=== PATIENT | female | born 1985 | race African-American/Black ===

== ENCOUNTER 2018-07-04 16:45 | Emergency (ER) | payer SELFPAY ==
--- NOTE | 2018-07-04 18:21 | ER ---
Nurse's Notes [facility] Name: Chilo Morton Age: 32 yrs Sex: Female : 1985 Arrival Date: 07/04/2018 Time: 16:51 Bed 14 Private MD: Diagnosis: Influenza due to other identified influenza virus-B Presentation: 07/04 16:51 Presenting complaint: Patient states: fever Tmax 101, sore throat, vomiting, headache x sv 2 days. Transition of care: patient was not received from another setting of care. Onset of symptoms was July 02, 2018. Care prior to arrival: None. 16:51 Method Of Arrival: Ambulatory sv 16:51 Acuity: ADRIANA 4 sv 18:33 Risk Assessment: Do you want to hurt yourself or someone else? Patient reports no aj1 desire to harm self or others. Initial Sepsis Screen: Does the patient meet any 2 criteria? No. Patient's initial sepsis screen is negative. Does the patient have a suspected source of infection? No. Patient's initial sepsis screen is negative. Triage Assessment: 16:53 General: Appears in no apparent distress. uncomfortable, Behavior is calm, cooperative, sv appropriate for age. Neuro: Level of Consciousness is awake, alert, obeys commands, Gait is steady. Respiratory: Respiratory effort is even, unlabored, Respiratory pattern is regular, symmetrical. Historical: - Allergies: 16:52 PENICILLINS; sv - PMHx: 16:52 None; sv - PSHx: 16:52 None; sv - Immunization history:: Adult Immunizations up to date. - Social history:: Smoking status: unknown. - Ebola Screening: : No symptoms or risks identified at this time. Screenin:30 Abuse screen: Denies threats or abuse. Denies injuries from another. Nutritional aj1 screening: No deficits noted. Tuberculosis screening: No symptoms or risk factors identified. 18:33 Fall Risk None identified. aj1 Assessment: 17:30 General: Appears in no apparent distress. uncomfortable, Behavior is calm, cooperative, aj1 appropriate for age. Pain: Complains of pain in left aspect of posterior pharynx and right aspect of posterior pharynx. Neuro: Level of Consciousness is awake, alert, obeys commands. Cardiovascular: Patient's skin is warm and dry. Respiratory: Airway is patent Respiratory effort is even, unlabored, Respiratory pattern is regular, symmetrical. Respiratory: Reports cough that is productive, Breath sounds are clear bilaterally. GI: Abdomen is non-distended, Reports nausea, vomiting, Patient currently denies diarrhea. : No signs and/or symptoms were reported regarding the genitourinary system. EENT: No signs and/or symptoms were reported regarding the EENT system. Derm: No signs and/or symptoms reported regarding the dermatologic system. Skin is pink, warm \T\ dry. normal. Musculoskeletal: No signs and/or symptoms reported regarding the musculoskeletal system. Circulation, motion, and sensation intact. 18:11 Reassessment: Patient appears in no apparent distress at this time. No changes from aj1 previously documented assessment. Patient and/or family updated on plan of care and expected duration. Pain level reassessed. Patient is alert, oriented x 3, equal unlabored respirations, skin warm/dry/pink. Vital Signs: 16:52 BP 142 / 90; Pulse 82; Resp 18; Temp 98.2; Pulse Ox 99% ; Height 5 ft. 3 in. (160.02 sv cm); 18:11 BP 130 / 76; Pulse 83; Resp 18; Pulse Ox 100% on R/A; aj1 ED Course: 16:51 Patient arrived in ED. sv 16:52 Triage completed. sv 16:53 Arm band placed on. sv 16:56 [facility] snw 16:56 Deangelo Cox MD is Attending Physician. snw 17:30 Patient has correct armband on for positive identification. Bed in low position. Call aj1 light in reach. Side rails up X 1. 17:30 No provider procedures requiring assistance completed. aj1 18:05 Karo Foster, TORIN is Primary Nurse. aj1 18:33 Patient did not have IV access during this emergency room visit. aj1 Administered Medications: No medications were administered Outcome: 18:20 Discharge ordered by . snw 18:33 Discharged to home ambulatory. aj1 18:33 Condition: good 18:33 Discharge instructions given to patient, Instructed on discharge instructions, follow up and referral plans. medication usage, Demonstrated understanding of instructions, follow-up care, medications, Prescriptions given X 2. 18:36 Patient left the ED. aj1 Signatures: Karo Foster RN RN [email or web address] Nancy Dale RN RN sv Leslie Padilla, LOCOMOTIVE FIRER-C LOCOMOTIVE FIRER-Csnw Corrections: (The following items were deleted from the chart) 16:54 16:52 Pulse 82bpm; Resp 18bpm; Pulse Ox 99%; Temp 98.2F; Height 5 ft. 3 in.; sv sv
--- NOTE | 2018-07-04 18:21 | EDPHYS ---
Physician Documentation [facility] Name: Chilo Morton Age: 32 yrs Sex: Female : 1985 Arrival Date: 07/04/2018 Time: 16:51 Bed 14 Private MD: ED Physician Deangelo Cox HPI: 07/04 17:09 This 32 yrs old Black Female presents to ER via Ambulatory with complaints of Sore snw Throat, Fever, Headache. 17:09 The patient presents with sore throat. The patient describes throat pain as scratchy. snw Onset: The symptoms/episode began/occurred suddenly, 2 day(s) ago, and became persistent. Severity of symptoms: At their worst the symptoms were moderate. Associated signs and symptoms: Pertinent positives: fever, flu-like symptoms, headache, Sore throat. The patient has not experienced similar symptoms in the past, but family has similar symptoms, "my whole family has the flu". The patient has not recently seen a physician. Historical: - Allergies: 16:52 PENICILLINS; sv - PMHx: 16:52 None; sv - PSHx: 16:52 None; sv - Immunization history:: Adult Immunizations up to date. - Social history:: Smoking status: unknown. - Ebola Screening: : No symptoms or risks identified at this time. ROS: 17:08 Eyes: Negative for injury, pain, redness, and discharge. snw 17:08 Neck: Negative for injury, pain, and swelling, Cardiovascular: Negative for chest pain, palpitations, and edema, Respiratory: Negative for shortness of breath, cough, wheezing, and pleuritic chest pain, Abdomen/GI: Negative for abdominal pain, nausea, vomiting, diarrhea, and constipation, Back: Negative for injury and pain, : Negative for injury, bleeding, discharge, and swelling, MS/Extremity: Negative for injury and deformity, Skin: Negative for injury, rash, and discoloration, Neuro: Negative for headache, weakness, numbness, tingling, and seizure. 17:08 Constitutional: Positive for body aches, chills, fever, poor PO intake. 17:08 ENT: Positive for nasal discharge, rhinorrhea. Exam: 17:08 Head/Face: Normocephalic, atraumatic. Eyes: Pupils equal round and reactive to light, snw extra-ocular motions intact. Lids and lashes normal. Conjunctiva and sclera are non-icteric and not injected. Cornea within normal limits. Periorbital areas with no swelling, redness, or edema. 17:08 Neck: Trachea midline, no thyromegaly or masses palpated, and no cervical lymphadenopathy. Supple, full range of motion without nuchal rigidity, or vertebral point tenderness. No Meningismus. Chest/axilla: Normal chest wall appearance and motion. Nontender with no deformity. No lesions are appreciated. Cardiovascular: Regular rate and rhythm with a normal S1 and S2. No gallops, murmurs, or rubs. Normal PMI, no JVD. No pulse deficits. Respiratory: Lungs have equal breath sounds bilaterally, clear to auscultation and percussion. No rales, rhonchi or wheezes noted. No increased work of breathing, no retractions or nasal flaring. Abdomen/GI: Soft, non-tender, with normal bowel sounds. No distension or tympany. No guarding or rebound. No evidence of tenderness throughout. Back: No spinal tenderness. No costovertebral tenderness. Full range of motion. Skin: Warm, dry with normal turgor. Normal color with no rashes, no lesions, and no evidence of cellulitis. MS/ Extremity: Pulses equal, no cyanosis. Neurovascular intact. Full, normal range of motion. Neuro: Awake and alert, GCS 15, oriented to person, place, time, and situation. Cranial nerves II-XII grossly intact. Motor strength 5/5 in all extremities. Sensory grossly intact. Cerebellar exam normal. Normal gait. Psych: Awake, alert, with orientation to person, place and time. Behavior, mood, and affect are within normal limits. 17:08 Constitutional: The patient appears alert, awake, well developed, uncomfortable. 17:08 ENT: TM's: are normal, Nose: nasal drainage, that is moderate, and is seen coming from both nares, that is clear, Mouth: is normal, Posterior pharynx: is normal. Vital Signs: 16:52 BP 142 / 90; Pulse 82; Resp 18; Temp 98.2; Pulse Ox 99% ; Height 5 ft. 3 in. (160.02 sv cm); 18:11 BP 130 / 76; Pulse 83; Resp 18; Pulse Ox 100% on R/A; aj1 MDM: 17:03 Patient medically screened. [facility] 18:21 Data reviewed: vital signs, nurses notes. Data interpreted: Pulse oximetry: on room air snw is 100 %. Interpretation: normal. Counseling: I had a detailed discussion with the patient and/or guardian regarding: the historical points, exam findings, and any diagnostic results supporting the discharge/admit diagnosis, lab results, the need for outpatient follow up, to return to the emergency department if symptoms worsen or persist or if there are any questions or concerns that arise at home. Special discussion: I have referred the patient to see his PCP for further evaluation of high blood pressure. Based on the history and exam findings, there is no indication for further emergent testing or inpatient evaluation. I discussed with the patient/guardian the need to see the primary care provider for further evaluation of the symptoms. 07/04 16:56 Order name: Flu; Complete Time: 18:22 snw 07/04 16:56 Order name: Strep; Complete Time: 18:24 snw 07/04 18:22 Order name: Throat Culture EDMS Administered Medications: No medications were administered Disposition: 07/04/18 18:20 Discharged to Home. Impression: Influenza due to other identified influenza virus - B. - Condition is Stable. - Discharge Instructions: Influenza, Adult. - Prescriptions for Tamiflu 75 mg Oral Capsule - take 1 capsule by ORAL route every 12 hours for 5 days; 10 capsule. Tylenol- Codeine #3 300-30 mg Oral Tablet - take 1 tablet by ORAL route every 6 hours As needed; 6 tablet. - Work release form, Medication Reconciliation Form, Thank You Letter, Antibiotic Education, Prescription Opioid Use form. - Follow up: Private Physician; When: 2 - 3 days; Reason: Recheck today's complaints, Continuance of care, Re-evaluation by your physician. Follow up: Emergency Department; When: As needed; Reason: Worsening of condition. Addendum: 07/07/2018 07:14 Co-signature as Attending Physician, Deangelo Cox MD I agree with the assessment and c genao plan of care. Signatures: Dispatcher [employer] EDKaro Mosquera RN RN aj1 Nancy Dale RN RN sv Anderson, Corey, MD MD cha Therrien, Shelly, TAX ACCOUNTANT-C TAX ACCOUNTANT-Csnw Corrections: (The following items were deleted from the chart) 07/04 18:36 18:20 07/04/2018 18:20 Discharged to Home. Impression: Influenza due to other aj1 identified influenza virus - B. Condition is Stable. Forms are Medication Reconciliation Form, Thank You Letter, Antibiotic Education, Prescription Opioid Use. Follow up: Private Physician; When: 2 - 3 days; Reason: Recheck today's complaints, Continuance of care, Re-evaluation by your physician. Follow up: Emergency Department; When: As needed; Reason: Worsening of condition. snw
== END 2018-07-04 18:36 | disposition home or self-care (01) ==
LOC: ER 16:45
DX: J10.1 Influenza due to other identified influenza virus with other respiratory manifestations (principal); Z88.0 Allergy status to penicillin
CPT/HCPCS: 87070; 87081; 87804; 99282

== ENCOUNTER 2019-05-28 08:03 | Emergency (ER) | payer SELFPAY ==
--- NOTE | 2019-05-28 10:11 | ER ---
Nurse's Notes [facility] Name: Chilo Morton Age: 33 yrs Sex: Female : 1985 Arrival Date: 05/28/2019 Time: 08:11 Bed 15 Private MD: Diagnosis: Acute laryngopharyngitis Presentation: 05/28 08:24 Presenting complaint: Patient states: i have had sore throat that started yesterday, i tw2 have a headache that's bad like a migraine, but i have had worse, and i vomited yesterday. no fever. Transition of care: patient was not received from another setting of care. Onset of symptoms was May 28, 2019. Risk Assessment: Do you want to hurt yourself or someone else? Patient reports no desire to harm self or others. Initial Sepsis Screen: Does the patient meet any 2 criteria? No. Patient's initial sepsis screen is negative. Does the patient have a suspected source of infection? No. Patient's initial sepsis screen is negative. Care prior to arrival: None. 08:24 Method Of Arrival: Ambulatory tw2 08:24 Acuity: ADRIANA 4 tw2 Triage Assessment: 08:26 General: Appears in no apparent distress. obese, Behavior is calm, cooperative, tw2 appropriate for age. Pain: Complains of pain in uvula, left aspect of posterior pharynx and right aspect of posterior pharynx. EENT: Reports nasal congestion nasal discharge. Neuro: Reports headache. 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 tw2 Historical: - Allergies: 08:27 PENICILLINS; tw2 08:27 Amoxicillin; tw2 08:27 [place] And Derivatives; tw2 - Home Meds: 08:27 None [Active]; tw2 - PMHx: 08:27 None; tw2 - PSHx: 08:27 None; tw2 - Immunization history:: Adult Immunizations. - Coronavirus screen:: The patient has NOT traveled to [place], [place], or [place] in the past 14 days. - Social history:: Smoking status: . - Ebola Screening: : Patient denies travel to an Ebola-affected area in the 21 days before illness onset. Screenin:41 Abuse screen: Denies threats or abuse. Nutritional screening: No deficits noted. tw2 Tuberculosis screening: No symptoms or risk factors identified. Fall Risk None identified. Assessment: 08:20 General: Appears in no apparent distress. obese, well groomed, Behavior is calm, tw2 cooperative, appropriate for age. Neuro: Level of Consciousness is awake, alert, obeys commands, Oriented to person, place, time, situation, Reports headache. Cardiovascular: Patient's skin is warm and dry. Respiratory: Airway is patent Respiratory effort is even, unlabored, Respiratory pattern is regular, symmetrical, Breath sounds are clear bilaterally. GI: Reports nausea, vomiting, vomited yesterday. : No signs and/or symptoms were reported regarding the genitourinary system. EENT: Throat is reddened Reports pain when swallowing. Derm: No signs and/or symptoms reported regarding the dermatologic system. Musculoskeletal: Range of motion: intact in all extremities. 09:31 Reassessment: Patient appears in no apparent distress at this time. No changes from tw2 previously documented assessment. Patient and/or family updated on plan of care and expected duration. Pain level reassessed. Patient is alert, oriented x 3, equal unlabored respirations, skin warm/dry/pink. 10:02 Reassessment: Patient appears in no apparent distress at this time. No changes from tw2 previously documented assessment. Patient and/or family updated on plan of care and expected duration. Pain level reassessed. Patient is alert, oriented x 3, equal unlabored respirations, skin warm/dry/pink. Vital Signs: 08:26 BP 121 / 61; Pulse 79; Resp 18; Temp 98.1(O); Pulse Ox 100% on R/A; Weight 95.25 kg tw2 (R); Height 5 ft. 3 in. (160.02 cm); Pain 8/10; 08:26 Body Mass Index 37.20 (95.25 kg, 160.02 cm) tw2 ED Course: 08:11 Patient arrived in ED. mr 08:12 Leslie Padilla [facility]NP-C [facility]. snw 08:12 Hubert Varela MD is Attending Physician. snw 08:19 Bed in low position. Call light in reach. tw2 08:24 Elaine Uriarte, TORIN is Primary Nurse. tw2 08:25 Triage completed. tw2 08:26 Arm band placed on. tw2 08:41 Flu and/or RSV swab sent to lab. Strep swab sent to lab. tw2 : Strep Sent. tw2 : Flu Sent. tw2 10: No provider procedures requiring assistance completed. Patient did not have IV access tw2 during this emergency room visit. Administered Medications: No medications were administered Outcome: Discharge ordered by . teagan 10: Discharged to home ambulatory. tw2 10: Condition: stable 10: Discharge instructions given to patient, Instructed on discharge instructions, follow up and referral plans. medication usage, Demonstrated understanding of instructions, follow-up care, medications, Prescriptions given X 2. 10:02 Patient left the ED. tw2 Signatures: Leslie Padilla, CAKE WRAPPER-C CAKE WRAPPER-Csnw Jocy Blandon mr Elaine Uriarte, RN RN tw2
--- NOTE | 2019-05-28 10:12 | EDPHYS ---
Physician Documentation [facility] Name: Chilo Morton Age: 33 yrs Sex: Female : 1985 Arrival Date: 05/28/2019 Time: 08:11 Bed 15 Private MD: ED Physician Hubert Varela HPI: 05/28 08:34 This 33 yrs old Black Female presents to ER via Ambulatory with complaints of Cough, snw Sore Throat, Runny Nose. 08:34 The patient or guardian reports cough, flu symptoms, low-grade fever, myalgias, no snw appetite. Onset: The symptoms/episode began/occurred suddenly, last night. Severity of symptoms: At their worst the symptoms were mild. Associated signs and symptoms: Pertinent positives: nausea, rhinorrhea, sore throat. The patient has not experienced similar symptoms in the past. The patient has not recently seen a physician. 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 tw2 Historical: - Allergies: 08:27 PENICILLINS; tw2 08:27 Amoxicillin; tw2 08:27 [place] And Derivatives; tw2 - Home Meds: 08:27 None [Active]; tw2 - PMHx: 08:27 None; tw2 - PSHx: 08:27 None; tw2 - Immunization history:: Adult Immunizations. - Coronavirus screen:: The patient has NOT traveled to [place], [place], or [place] in the past 14 days. - Social history:: Smoking status: . - Ebola Screening: : Patient denies travel to an Ebola-affected area in the 21 days before illness onset. ROS: 08:33 Eyes: Negative for injury, pain, redness, and discharge. snw 08:33 Neck: Negative for injury, pain, and swelling, Cardiovascular: Negative for chest pain, palpitations, and edema. 08:33 Back: Negative for injury and pain, : Negative for injury, bleeding, discharge, and swelling, MS/Extremity: Negative for injury and deformity, Skin: Negative for injury, rash, and discoloration, Neuro: Negative for headache, weakness, numbness, tingling, and seizure. 08:33 Constitutional: Positive for body aches, fatigue, malaise, poor PO intake. 08:33 ENT: Positive for sinus congestion, sore throat. 08:33 Respiratory: Positive for cough, with no reported sputum. 08:33 Abdomen/GI: Positive for nausea, vomiting. Exam: 08:32 Constitutional: This is a well developed, well nourished patient who is awake, alert, snw and in no acute distress. Head/Face: Normocephalic, atraumatic. Eyes: Pupils equal round and reactive to light, extra-ocular motions intact. Lids and lashes normal. Conjunctiva and sclera are non-icteric and not injected. Cornea within normal limits. Periorbital areas with no swelling, redness, or edema. 08:32 Neck: Trachea midline, no thyromegaly or masses palpated, and no cervical lymphadenopathy. Supple, full range of motion without nuchal rigidity, or vertebral point tenderness. No Meningismus. Chest/axilla: Normal chest wall appearance and motion. Nontender with no deformity. No lesions are appreciated. Cardiovascular: Regular rate and rhythm with a normal S1 and S2. No gallops, murmurs, or rubs. Normal PMI, no JVD. No pulse deficits. Respiratory: Lungs have equal breath sounds bilaterally, clear to auscultation and percussion. No rales, rhonchi or wheezes noted. No increased work of breathing, no retractions or nasal flaring. Abdomen/GI: Soft, non-tender, with normal bowel sounds. No distension or tympany. No guarding or rebound. No evidence of tenderness throughout. Back: No spinal tenderness. No costovertebral tenderness. Full range of motion. Skin: Warm, dry with normal turgor. Normal color with no rashes, no lesions, and no evidence of cellulitis. MS/ Extremity: Pulses equal, no cyanosis. Neurovascular intact. Full, normal range of motion. Neuro: Awake and alert, GCS 15, oriented to person, place, time, and situation. Cranial nerves II-XII grossly intact. Motor strength 5/5 in all extremities. Sensory grossly intact. Cerebellar exam normal. Normal gait. Psych: Awake, alert, with orientation to person, place and time. Behavior, mood, and affect are within normal limits. 08:32 ENT: External ear(s): are unremarkable, Ear canal(s): are normal, TM's: are normal, Nose: is normal, Mouth: is normal, Posterior pharynx: is normal, Voice: is hoarse. Vital Signs: 08:26 BP 121 / 61; Pulse 79; Resp 18; Temp 98.1(O); Pulse Ox 100% on R/A; Weight 95.25 kg tw2 (R); Height 5 ft. 3 in. (160.02 cm); Pain 8/10; 08:26 Body Mass Index 37.20 (95.25 kg, 160.02 cm) tw2 MDM: 08:35 Patient medically screened. snw 09:53 Differential Diagnosis: Bronchitis Influenza Upper Respiratory Infection Sinusitis snw Pharyngitis Otitis Media. Data reviewed: vital signs, nurses notes, lab test result(s). Data interpreted: Pulse oximetry: on room air is 100 %. Interpretation: normal. Counseling: I had a detailed discussion with the patient and/or guardian regarding: the historical points, exam findings, and any diagnostic results supporting the discharge/admit diagnosis, lab results, the need for outpatient follow up, to return to the emergency department if symptoms worsen or persist or if there are any questions or concerns that arise at home. Special discussion: Based on the history and exam findings, there is no indication for further emergent testing or inpatient evaluation. I discussed with the patient/guardian the need to see the primary care provider for further evaluation of the symptoms. 05/28 08:25 Order name: Flu snw 05/28 08:25 Order name: Strep snw 05/28 09:45 Order name: Influenza Screen (A ; Complete Time: 09:48 EDMS 02 09:45 Order name: Group A Streptococcus Rapid Sc; Complete Time: 09:48 EDMS Administered Medications: No medications were administered Disposition: 16:33 Co-signature as Attending Physician, Hubert Varela MD. rn Disposition: 05/28/19 09:52 Discharged to Home. Impression: Acute laryngopharyngitis. - Condition is Stable. - Discharge Instructions: Fever, Adult, Pharyngitis, Upper Respiratory Infection, Adult, Cough, Adult, Rehydration, Adult. - Prescriptions for Zyrtec 10 mg Oral Tablet - take 1 tablet by ORAL route once daily As needed; 20 tablet. Prednisone 20 mg Oral Tablet - take 2 tablet by ORAL route once daily for 5 days; 10 tablet. - Medication Reconciliation Form, Thank You Letter, Antibiotic Education, Prescription Opioid Use, Work release form form. - Follow up: Emergency Department; When: As needed; Reason: Worsening of condition. Follow up: Private Physician; When: 2 - 3 days; Reason: Recheck today's complaints, Continuance of care, Re-evaluation by your physician. Signatures: Dispatcher [employer] EDLeslie Choudhary, WAIST FITTER-C WAIST FITTER-Csnw Hubert Varela MD MD rn Elaine Uriarte RN RN tw2 Corrections: (The following items were deleted from the chart) 10:02 09:52 05/28/2019 09:52 Discharged to Home. Impression: Acute laryngopharyngitis. tw2 Condition is Stable. Forms are Work release form, Medication Reconciliation Form, Thank You Letter, Antibiotic Education, Prescription Opioid Use. Follow up: Emergency Department; When: As needed; Reason: Worsening of condition. Follow up: Private Physician; When: 2 - 3 days; Reason: Recheck today's complaints, Continuance of care, Re-evaluation by your physician. snw
[2019-05-28 10:56] VITALS: BP 121/61; TEMP 98.1; O2SAT 100
== END 2019-05-28 10:02 | disposition home or self-care (01) ==
LOC: ER 08:03
DX: J06.0 Acute laryngopharyngitis (principal); Z88.0 Allergy status to penicillin; Z88.1 Allergy status to other antibiotic agents
CPT/HCPCS: 87070; 87081; 87804; 99283

== ENCOUNTER 2021-12-19 09:13 | Emergency (ER) | payer SELFPAY ==
--- NOTE | 2021-12-19 11:11 | ER ---
Nurse's Notes [facility] Name: Chilo Morton Age: 36 yrs Sex: Female : 1985 Arrival Date: 12/19/2021 Time: 09:20 Bed Waiting Private MD: Diagnosis: Acute upper respiratory infection, unspecified Presentation: 12/19 09:53 Chief complaint: Patient states: i would say its a migraine but i dont know. its on tw2 going and applied pressure or a sinus headache. it started about 3 days ago maybe long. it comes and goes and nothing helps relieve the pain and pressure. +sob +cough. Coronavirus screen: congestion, cough unrelated to allergies, Client presents with at least one sign or symptom that may indicate coronavirus-19. Standard/surgical mask placed on the client. Provider contacted for isolation considerations. Ebola Screen: Patient denies travel to an Ebola-affected area in the 21 days before illness onset. Initial Sepsis Screen: Does the patient meet any 2 criteria? HR > 90 bpm. No. Patient's initial sepsis screen is negative. Does the patient have a suspected source of infection? No. Patient's initial sepsis screen is negative. Risk Assessment: Do you want to hurt yourself or someone else? Patient reports no desire to harm self or others. Onset of symptoms was December 19, 2021. 09:53 Method Of Arrival: Ambulatory tw 09:53 Acuity: ADRIANA 4 METAL CONTROL COORDINATOR: 09:52 LMP 12/15/2021 tw2 Historical: - Allergies: 09:51 Amoxicillin; tw2 09:51 [place] And Derivatives; tw2 09:51 PENICILLINS; tw2 - Home Meds: 09:51 None [Active]; 2 - PMHx: 09:51 None; 2 - PSHx: 09:51 None; tw2 - Immunization history:: Client reports receiving the 2nd dose of the Covid vaccine. - Social history:: Smoking status: Reported history of juuling and/or vaping. Patient uses alcohol, but reports only rare drinking. Screenin:17 Abuse screen: Denies threats or abuse. Nutritional screening: No deficits noted. tw2 Tuberculosis screening: No symptoms or risk factors identified. Fall Risk None identified. Assessment: 11:17 Reassessment: Patient appears in no apparent distress at this time. No changes from tw2 previously documented assessment. Patient and/or family updated on plan of care and expected duration. Pain level reassessed. Patient is alert, oriented x 3, equal unlabored respirations, skin warm/dry/pink. Pain: Denies pain. Neuro: Level of Consciousness is awake, alert, obeys commands, Oriented to person, place, time, situation. Vital Signs: 09:52 BP 137 / 89; Pulse 98; Resp 17; Temp 98.5(O); Pulse Ox 100% on R/A; Weight 104.33 kg tw2 (M); Height 5 ft. 4 in. (162.56 cm); 09:52 Body Mass Index 39.48 (104.33 kg, 162.56 cm) tw2 ED Course: 09:20 Patient arrived in ED. mr 09:20 [facility] 7 09:20 Carlin Capone DO is Attending Physician. 7 09:51 Arm band placed on. tw2 09:55 Triage completed. tw2 09:58 Flu Sent. tw2 09:58 COVID-19 SARS RT PCR (Document "Date of Onset" if Symptomatic) Sent. tw2 10:27 Chest Single View XRAY In Process Unspecified. EDMS 11:17 Elaine Uriarte, TORIN is Primary Nurse. tw2 11:17 No provider procedures requiring assistance completed. Patient did not have IV access tw2 during this emergency room visit. Administered Medications: No medications were administered Outcome: 11:11 Discharge ordered by . [facility] 11:17 Discharged to home ambulatory. tw2 11:17 Condition: stable 11:17 Discharge instructions given to patient, Instructed on discharge instructions, follow up and referral plans. medication usage, Demonstrated understanding of instructions, follow-up care, medications, Prescriptions given X 2. 11:17 Patient left the ED. tw2 Signatures: Dispatcher [employer] EDWV Jocy Blandon mr Elaine Uriarte RN RN tw2 Jenifer Jacob FNP FNP [facility]
--- NOTE | 2021-12-19 11:12 | EDPHYS ---
Physician Documentation [facility] Name: Chilo Morton Age: 36 yrs Sex: Female : 1985 Arrival Date: 12/19/2021 Time: 09:20 Bed Waiting Private MD: ED Physician Carlin Capone HPI: 12/19 09:35 This 36 yrs old Black Female presents to ER via Unassigned with complaints of Headache, jh7 Congestion. 09:35 The patient complains of pain to the forehead, right evangelical and left evangelical. Onset: The jh7 symptoms/episode began/occurred 3 day(s) ago. Associated signs and symptoms: Pertinent positives: Cough, congestion, chest tightness, Pertinent negatives: fever. 36-year-old female presents to the ER complaining of headache, congestion, cough, and chest tightness for the past 3 days. She denies fever. She denies any past medical history.. MID LEVEL PROVIDER: 09:52 LMP 12/15/2021 tw2 Historical: - Allergies: 09:51 Amoxicillin; tw2 09:51 [place] And Derivatives; tw2 09:51 PENICILLINS; tw2 - Home Meds: 09:51 None [Active]; tw2 - PMHx: 09:51 None; tw2 - PSHx: 09:51 None; tw2 - Immunization history:: Client reports receiving the 2nd dose of the Covid vaccine. - Social history:: Smoking status: Reported history of juuling and/or vaping. Patient uses alcohol, but reports only rare drinking. ROS: 09:35 Constitutional: Negative for fever, chills, and weight loss, Eyes: Negative for injury, jh7 pain, redness, and discharge, Neck: Negative for injury, pain, and swelling, Cardiovascular: Negative for chest pain, palpitations, and edema, Abdomen/GI: Negative for abdominal pain, nausea, vomiting, diarrhea, and constipation, Back: Negative for injury and pain, MS/Extremity: Negative for injury and deformity, Skin: Negative for injury, rash, and discoloration. 09:35 ENT: Positive for nasal discharge, sinus congestion. 09:35 Respiratory: Positive for cough. 09:35 Neuro: Positive for headache, Negative for altered mental status, dizziness, syncope, visual changes, weakness. 09:35 All other systems are negative. Exam: 09:35 Constitutional: This is a well developed, well nourished patient who is awake, alert, jh7 and in no acute distress. Neck: Trachea midline, no thyromegaly or masses palpated, and no cervical lymphadenopathy. Supple, full range of motion without nuchal rigidity, or vertebral point tenderness. No Meningismus. Cardiovascular: Regular rate and rhythm with a normal S1 and S2. No gallops, murmurs, or rubs. Normal PMI, no JVD. No pulse deficits. Respiratory: Lungs have equal breath sounds bilaterally, clear to auscultation and percussion. No rales, rhonchi or wheezes noted. No increased work of breathing, no retractions or nasal flaring. Abdomen/GI: Soft, non-tender, with normal bowel sounds. No distension or tympany. No guarding or rebound. No evidence of tenderness throughout. Back: No spinal tenderness. No costovertebral tenderness. Full range of motion. Skin: Warm, dry with normal turgor. Normal color with no rashes, no lesions, and no evidence of cellulitis. Neuro: Awake and alert, GCS 15, oriented to person, place, time, and situation. Motor strength 5/5 in all extremities. Sensory grossly intact. Normal gait. 09:35 ENT: post nasal drainage. Vital Signs: 09:52 BP 137 / 89; Pulse 98; Resp 17; Temp 98.5(O); Pulse Ox 100% on R/A; Weight 104.33 kg tw2 (M); Height 5 ft. 4 in. (162.56 cm); 09:52 Body Mass Index 39.48 (104.33 kg, 162.56 cm) tw2 MDM: 09:31 Patient medically screened. [facility] 11:15 Differential diagnosis: sinusitis, Bronchitis, upper respiratory infection, flu, COVID. [facility] Data reviewed: vital signs, nurses notes, lab test result(s), radiologic studies. Data interpreted: Pulse oximetry: is 100 %. Interpretation: normal. Counseling: I had a detailed discussion with the patient and/or guardian regarding: the historical points, exam findings, and any diagnostic results supporting the discharge/admit diagnosis, to return to the emergency department if symptoms worsen or persist or if there are any questions or concerns that arise at home. 12/19 09:48 Order name: Flu; Complete Time: 10:43 jh7 12/19 09:48 Order name: COVID-19 SARS RT PCR (Document "Date of Onset" if Symptomatic); Complete [facility] Time: 11:12/19 09:48 Order name: Chest Single View XRAY 7 Administered Medications: No medications were administered Disposition: 17:13 Co-signature as Attending Physician, Carlin Capone DO I agree with the assessment and mn3 plan of care. Disposition Summary: 12/19/21 11:11 Discharge Ordered Location: Home [facility] Problem: new [facility] Symptoms: are unchanged [facility] Condition: Stable [facility] Diagnosis - Acute upper respiratory infection, unspecified [facility] Followup: [facility] - With: Private Physician - When: 2 - 3 days - Reason: Recheck today's complaints Discharge Instructions: - Discharge Summary Sheet 2 - Upper Respiratory Infection, Adult [facility] Forms: - Work release form tw2 - Medication Reconciliation Form [facility] - Thank You Letter [facility] Prescriptions: - Bromfed DM 2-30-10 mg/5 mL Oral syrup - take 10 milliliter by ORAL route every 4 hours As needed; 240 milliliter; [facility] Refills: 0, Product Selection Permitted - ProAir HFA 90 mcg/actuation Inhalation HFA aerosol inhaler - inhale 2 puff by INHALATION route every 4-6 hours As needed; 1 Inhaler; [facility] Refills: 0, Product Selection Permitted Signatures: Dispatcher [employer] Elaine Patton, RN RN tw2 Carlin Capone, DO ms3 Jenifer Jacob, LIQUID COMPOUNDER LIQUID COMPOUNDER [facility]
[2021-12-19 11:36] VITALS: BP 137/89; TEMP 98.5; O2SAT 100
--- NOTE | 2021-12-19 12:19 | RAD REPORT ---
EXAM DESCRIPTION: [place] Single View12/19/2021 10:25 am CLINICAL HISTORY: Cough COMPARISON: none FINDINGS: The lungs appear clear of acute infiltrate. The heart is normal size IMPRESSION: No acute abnormalities displayed
== END 2021-12-19 11:17 | disposition home or self-care (01) ==
LOC: ER 09:13
DX: J06.9 Acute upper respiratory infection, unspecified (principal); Z88.0 Allergy status to penicillin; Z88.1 Allergy status to other antibiotic agents; Z91.018 Allergy to other foods; Z20.822 Contact with and (suspected) exposure to COVID-19
CPT/HCPCS: 71045; 87804; U0003

== ENCOUNTER 2025-02-15 19:20 | Emergency (ER) | payer SELFPAY ==
[2025-02-15] MEDS ORDERED: SMZ./TMP. 800/160 MG TABLET ONE (19:29)
[2025-02-15] MEDS ORDERED: IBUPROFEN 400 MG TAB ONE (19:29)
--- NOTE | 2025-02-15 19:38 | EDPHYS ---
Physician Documentation [facility] Name: Chilo Morton Age: 39 yrs Sex: Female : 1985 Arrival Date: 02/15/2025 Time: 19:20 Bed 10 Private MD: ED Physician Jose Chavez HPI: 02/15 19:36 This 39 yrs old Black Female presents to ER via Unassigned with complaints of ingrown kb toenail. 19:36 Pt is a 39 year old female who presents for ingrown nail to left great toe that started kb 2 weeks ago. Denies fever. States it has become more swollen and painful. Historical: - Allergies: 19:37 Amoxicillin; br2 19:37 [place] And Derivatives; br2 19:37 PENICILLINS; br2 - Home Meds: 19:37 None [Active]; br2 - PSHx: 19:37 None; br2 - Immunization history:: Adult Immunizations not up to date. - Infectious Disease History:: Denies. - Social history:: Smoking status: Reported history of juuling and/or vaping. Patient uses alcohol, occasionally. Patient/guardian denies using street drugs. ROS: 19:35 Constitutional: As per HPI kb Exam: 19:35 Constitutional: This is a well developed, well nourished patient who is awake, alert, kb and in no acute distress. Head/Face: Normocephalic, atraumatic. ENT: Moist Mucous membranes Respiratory: Respirations even and unlabored. No increased work of breathing. Talking in full sentences Skin: Warm, dry with normal turgor. Normal color. Neuro: Awake and alert, GCS 15, oriented to person, place, time, and situation. 19:35 Musculoskeletal/extremity: Nails: ingrown nail with swelling and tenderness to left great toe, Vital Signs: 19:35 BP 161 / 79; Pulse 96; Resp 18; Temp 97.1; Pulse Ox 100% ; Weight 120.66 kg; Height 5 br2 ft. 3 in. ; Pain 7/10; 19:35 Body Mass Index 47.12 (120.66 kg, 160.02 cm) br2 19:35 Pain Scale: Adult br2 MDM: 19:27 Medical Screening Exam initiated kb 19:37 Differential diagnosis: ingrown nail, paronychia, abscess. Data reviewed: vital signs, kb nurses notes. Historians other than the Patient: Friend: friend. Counseling: I had a detailed discussion with the patient and/or guardian regarding the historical points, exam findings, and any diagnostic results supporting the discharge/admit diagnosis, the need for outpatient follow up, a tearoom hostess, to return to the emergency department if symptoms worsen or persist or if there are any questions or concerns that arise at home. Administered Medications: 19:47 Drug: Trimethoprim-Sulfamethoxazole PO (160 mg-800 mg (DS) 1 tablet PO once Route: PO; jb4 19:54 Follow up: Response: Medication administered at discharge. jb4 19:47 Drug: Ibuprofen PO 800 mg PO once Route: PO; jb4 19:54 Follow up: Response: Medication administered at discharge. jb4 Disposition Summary: 02/15/25 19:38 Discharge Ordered Notes: Location: Home kb Condition: Stable kb Diagnosis - Ingrowing nail kb Followup: kb - With: Emergency Department - When: As needed - Reason: Worsening of condition Followup: kb - With: Private Physician - When: 2 - 3 days - Reason: Recheck today's complaints, Continuance of care, Re-evaluation by your physician Discharge Instructions: - Discharge Summary Sheet kb - Ingrown Toenail kb Forms: - Medication Reconciliation Form kb - Antibiotic Education kb - Prescription Opioid Use kb - Patient Portal Instructions kb - Leadership Thank You Letter kb - Work release form jb4 Prescriptions: - Bactrim DS 800-160 mg Oral Tablet - take 1 tablet ORAL route every 12 hours for 10 days; 20 tablet; Refills: 0, kb Product Selection Permitted Signatures: Elissa Louie FNP-C FNP-Adams Crowder, RN RN jb4 Marva Dent, RN RN br2
--- NOTE | 2025-02-15 19:38 | ER ---
Nurse's Notes [facility] Name: Chilo Morton Age: 39 yrs Sex: Female : 1985 Arrival Date: 02/15/2025 Time: 19:20 Bed 10 Private MD: Diagnosis: Ingrowing nail Presentation: 02/15 19:35 Chief complaint: Patient states: LEFT GREAT TOE INGROWN TOE NAIL FOR THE LAST 2 WEEKS , br2 REDNESS, EDEMA, PAIN. Coronavirus screen: Client denies travel out of the [place] in the last 14 days. Ebola Screen: Patient denies exposure to infectious person. Initial Sepsis Screen: Does the patient meet any 2 criteria? HR > 90 bpm. Does the patient have a suspected source of infection? No. Patient's initial sepsis screen is negative. Risk Assessment: Do you want to hurt yourself or someone else? Patient reports no desire to harm self or others. Onset of symptoms was February 08, 2025. 19:35 Method Of Arrival: Ambulatory br2 19:35 Acuity: ADRIANA 5 br2 Triage Assessment: 19:37 General: Appears uncomfortable, Behavior is calm, cooperative. Pain: Complains of pain br2 in Left first toenail Pain currently is 7 out of 10 on a pain scale. Historical: - Allergies: 19:37 Amoxicillin; br2 19:37 [place] And Derivatives; br2 19:37 PENICILLINS; br2 - Home Meds: 19:37 None [Active]; br2 - PSHx: 19:37 None; br2 - Immunization history:: Adult Immunizations not up to date. - Infectious Disease History:: Denies. - Social history:: Smoking status: Reported history of juuling and/or vaping. Patient uses alcohol, occasionally. Patient/guardian denies using street drugs. Screenin:57 [facility] ED Fall Risk Assessment (Adult) History of falling in the last 3 months, jb4 including since admission No falls in past 3 months (0 pts) Confusion or Disorientation No (0 pts) Intoxicated or Sedated No (0 pts) Impaired Gait No (0 pts) Mobility Assist Device Used No (0 pt) Altered Elimination No (0 pt) Score/Fall Risk Level 0 - 2 = Low Risk Oriented to surroundings, Maintained a safe environment. Abuse screen: Denies threats or abuse. Nutritional screening: No deficits noted. Tuberculosis screening: No symptoms or risk factors identified. Assessment: 19:57 General: Appears in no apparent distress. comfortable, Behavior is calm, cooperative, jb4 appropriate for age. Pain: Complains of pain in Left first toenail Pain does not radiate. Pain currently is 7 out of 10 on a pain scale. Neuro: Level of Consciousness is awake, alert, obeys commands, Oriented to person, place, time, situation. Cardiovascular: Patient's skin is warm and dry. Respiratory: Airway is patent Respiratory effort is even, unlabored, Respiratory pattern is regular, symmetrical. Derm: Skin is intact, Skin is pink, warm \T\ dry. Musculoskeletal: Circulation, motion, and sensation intact. Range of motion: intact in all extremities. Vital Signs: 19:35 BP 161 / 79; Pulse 96; Resp 18; Temp 97.1; Pulse Ox 100% ; Weight 120.66 kg; Height 5 br2 ft. 3 in. ; Pain 7/10; 19:35 Body Mass Index 47.12 (120.66 kg, 160.02 cm) br2 19:35 Pain Scale: Adult br2 ED Course: 19:23 Patient arrived in ED. al6 19:27 Elissa Louie [facility]-C [facility]. kb 19:27 Jose Chavez MD is Attending Physician. kb 19:37 Triage completed. br2 19:37 Adams Moser, RN is Primary Nurse. jb4 19:37 Arm band placed on right wrist. br2 19:57 Patient has correct armband on for positive identification. Bed in low position. Call jb4 light in reach. Side rails up X 1. Provided Education on: discharge instructions.. 19:57 No provider procedures requiring assistance completed. Patient did not have IV access jb4 during this emergency room visit. Administered Medications: 19:47 Drug: Trimethoprim-Sulfamethoxazole PO (160 mg-800 mg (DS) 1 tablet PO once Route: PO; jb4 19:54 Follow up: Response: Medication administered at discharge. jb4 19:47 Drug: Ibuprofen PO 800 mg PO once Route: PO; jb4 19:54 Follow up: Response: Medication administered at discharge. jb4 Medication: 19:57 VIS not applicable for this client. jb4 Outcome: 19:38 Discharge ordered by . kb 19:57 Discharged to home ambulatory, jb4 19:57 Condition: stable 19:57 Discharge instructions given to patient, Instructed on discharge instructions, follow up and referral plans. medication usage, Demonstrated understanding of instructions, follow-up care, medications, Prescriptions given X 1, 19:59 Patient left the ED. jb4 Signatures: Elissa Louie, YARN EXAMINER SKEINS-C YARN EXAMINER SKEINS-Adams Crowder RN RN jb4 Marva Dent RN RN br2 Alissa Mari al6
[2025-02-16 03:28] VITALS: BP 161/79; TEMP 97.1; O2SAT 100
== END 2025-02-15 19:59 | disposition home or self-care (01) ==
LOC: ER 19:20
DX: L60.0 Ingrowing nail (principal); F17.290 Nicotine dependence, other tobacco product, uncomplicated; Z88.0 Allergy status to penicillin; Z88.1 Allergy status to other antibiotic agents
CPT/HCPCS: 99283